=== PATIENT | female | born 1940 | race Caucasian/White ===

== ENCOUNTER 2016-05-20 15:28 | Emergency (ER) | payer OTHER ==
[~2016-05-20] VITALS: Ht 147.3 cm; Wt 58.5 kg
[~2016-05-20 15:28] MED LIST: A/B OTIC15 ML; ALENDRONATE SOD70 M1 PO; ALLOPURINOL PO; AMIODARONE HCL200 MG PO; ASA PO; BENICAR HCT1 TA1 PO; CLONIDINE HCL0.1 MG PO; DONEPEZIL HYDROC5 MG PO; FUROCOT20 MG PO; GLIMEPIRIDE1 M1 PO; HYDRALAZINE100 MG PO; HYDROCODONE BIT1 TA9 PO; KEFLEX500 MG PO; LANTUS100 U/ML SC; LEADER OMEPRAZO20 MG PO; LISINOPRIL40 MG PO; LOSARTAN POTAS100 MG PO; MASON25 MG PO; MEGL PO; METFORMIN HCL500 MG PO; METOPROLOL100 MG PO; NAP500 PO; NEU100 PO; POTASSIUM CHLO10 MEQ PO; PRADAXA150 M1 PO; SIMVASTATIN20 M1 PO; SIMVASTATIN20 MG PO; [UNRECOGNIZED DRUG - OTHER] PO
[2016-05-20 16:00] VITALS: BP 144/97
== END 2016-05-20 17:02 | disposition left against medical advice (07) ==
LOC: ED 15:28
DX: Z53.21 Procedure and treatment not carried out due to patient leaving prior to being seen by health care provider (principal)

== ENCOUNTER 2018-05-09 13:06 | Emergency (ER) | payer OTHER ==
[~2018-05-09] VITALS: Ht 127 cm; Wt 49.9 kg
[2018-05-09 13:13] VITALS: Ht 127 cm; Wt 49.9 kg
[2018-05-09 14:15] LABS: BASOPHIL % 0.4 % (0-2); PLATELET COUNT 198 x10^3mcL (130-400); RED CELL DISTRIBUTION WIDTH 12.6 % (11.5-14.5)
[2018-05-09 14:25] LABS: CALCIUM 9.1 mg/dL (8.5-10.1); CARBON DIOXIDE 28.4 mmol/L (21-32); CHLORIDE SERUM 104 mmol/L (98-107); CREATININE SERUM 0.8 mg/dL (0.6-1.0); GLUCOSE SERUM 123 mg/dL (74-106); SODIUM SERUM 140 mmol/L (136-145)
[2018-05-09 14:34] LABS: ALKALINE PHOSPHATASE 114 U/L (46-116); ALT/SGPT 25 U/L (14-59); AMYLASE 72 U/L (25-115); AST/SGOT 15 U/L (15-37); BILIRUBIN TOTAL 0.6 mg/dL (0.20-1.00); LIPASE 84 IU/L (73-393); T4(THYROXINE) 9.8 ug/dL (4.7-13.3); TOTAL PROTEIN, SERUM 7.5 g/dL (6.4-8.2)
[2018-05-09 14:35] LABS: ALBUMIN 3.2 g/dL (3.4-5.0); CHOLESTEROL 91 mg/dL (<200); HDL CHOLESTEROL 28 mg/dL (40-60)
[2018-05-09 15:23] LABS: UA SPECIFIC GRAVITY 1.015 (1.005-1.035); microscopic required? YES; urine erythrocyte 3+ (NEGATIVE)
[2018-05-09 16:02] VITALS: BP 135/80
== END 2018-05-09 16:02 | disposition home or self-care (01) ==
LOC: ED 13:06
PROVIDERS: Emergency Medicine
DX: N93.8 Other specified abnormal uterine and vaginal bleeding (principal); I11.0 Hypertensive heart disease with heart failure; I50.9 Heart failure, unspecified; E03.9 Hypothyroidism, unspecified; J44.9 Chronic obstructive pulmonary disease, unspecified; E11.9 Type 2 diabetes mellitus without complications; G30.9 Alzheimer's disease, unspecified; Z98.890 Other specified postprocedural states
CPT/HCPCS: 83880; J7030; Q0092

== ENCOUNTER 2018-05-13 00:56 | Inpatient (IN) | payer OTHER ==
[~2018-05-13] VITALS: Ht 157.5 cm; Wt 55.4 kg
[~2018-05-13 00:56] MED LIST changes: +METOPROLOL TAR100 MG PO; -METOPROLOL100 MG PO
[2018-05-13 01:38] LABS: BASOPHIL % 0.5 % (0-2); PLATELET COUNT 218 x10^3mcL (130-400); RED CELL DISTRIBUTION WIDTH 11.9 % (11.5-14.5)
[2018-05-13 01:47] LABS: CARBON DIOXIDE 27.6 mmol/L (21-32); CHLORIDE SERUM 106 mmol/L (98-107); CREATININE SERUM 0.8 mg/dL (0.6-1.0); GLUCOSE SERUM 132 mg/dL (74-106); POTASSIUM SERUM 3.4 mmol/L (3.5-5.1); SODIUM SERUM 142 mmol/L (136-145)
[2018-05-13 01:52] LABS: ALKALINE PHOSPHATASE 113 U/L (46-116); ALT/SGPT 17 U/L (14-59); AST/SGOT 15 U/L (15-37); BILIRUBIN TOTAL 0.49 mg/dL (0.20-1.00); TOTAL PROTEIN, SERUM 7.3 g/dL (6.4-8.2)
[2018-05-13 01:55] LABS: ALBUMIN 3.1 g/dL (3.4-5.0)
[2018-05-13 02:19] LABS: UA SPECIFIC GRAVITY <=1.005 (1.005-1.035); microscopic required? YES; urine erythrocyte 1+ (NEGATIVE)
[2018-05-13 02:43] LABS: CHOLESTEROL/HDL RATIO 3.1
[2018-05-13 03:27] VITALS: BP 105/51
[2018-05-13 06:14] LABS: BASOPHIL % 0.3 % (0-2); PLATELET COUNT 176 x10^3mcL (130-400); RED CELL DISTRIBUTION WIDTH 12.6 % (11.5-14.5)
[2018-05-13 06:32] LABS: CALCIUM 8.4 mg/dL (8.5-10.1); CARBON DIOXIDE 27.9 mmol/L (21-32); CHLORIDE SERUM 107 mmol/L (98-107); CREATININE SERUM 0.8 mg/dL (0.6-1.0); GLUCOSE SERUM 139 mg/dL (74-106); MAGNESIUM 1.9 mg/dL (1.8-2.4); PHOSPHOROUS 3.5 mg/dL (2.5-4.9); POTASSIUM SERUM 3.6 mmol/L (3.5-5.1); SODIUM SERUM 140 mmol/L (136-145)
[2018-05-13 09:21] VITALS: BP 105/55
[2018-05-13 13:01] VITALS: BP 117/57
[2018-05-13 15:45] LABS: microscopic required? YES; urine erythrocyte 2+ (NEGATIVE)
[2018-05-13 15:54] LABS: AMPHETAMINE QUAL UR NONE DETECTED (See below)
[2018-05-13 20:54] VITALS: BP 116/81
[2018-05-14 06:06] VITALS: BP 124/56
[2018-05-14 06:18] LABS: BASOPHIL % 0.5 % (0-2); PLATELET COUNT 167 x10^3mcL (130-400); RED CELL DISTRIBUTION WIDTH 12.6 % (11.5-14.5)
[2018-05-14 06:40] LABS: CALCIUM 8.7 mg/dL (8.5-10.1); CARBON DIOXIDE 29.8 mmol/L (21-32); CHLORIDE SERUM 108 mmol/L (98-107); CREATININE SERUM 0.6 mg/dL (0.6-1.0); GLUCOSE SERUM 121 mg/dL (74-106); MAGNESIUM 1.8 mg/dL (1.8-2.4); PHOSPHOROUS 3.2 mg/dL (2.5-4.9); SODIUM SERUM 147 mmol/L (136-145)
[2018-05-14 08:24] VITALS: BP 113/63
[2018-05-14 13:40] VITALS: BP 128/66
[2018-05-14 21:41] VITALS: BP 153/73
[2018-05-15 05:21] VITALS: BP 141/72
[2018-05-15 08:27] VITALS: BP 141/72
[2018-05-15 12:04] VITALS: BP 157/71
[2018-05-15] MEDS ORDERED: ROC1I IV (15:31)
[2018-05-15 16:15] VITALS: BP 140/70
[2018-05-15 16:17] VITALS: BP 140/70
== END 2018-05-15 18:30 | disposition home health service (06) | DRG 56 ==
LOC: ED 00:56 → DU 02:22
PROVIDERS: Emergency Medicine; General Practice; ADMIT Internal Medicine
DX: G30.9 Alzheimer's disease, unspecified (principal); G93.41 Metabolic encephalopathy; N17.0 Acute kidney failure with tubular necrosis; N39.0 Urinary tract infection, site not specified; E44.0 Moderate protein-calorie malnutrition; F02.80 Dementia in other diseases classified elsewhere, unspecified severity, without behavioral disturbance, psychotic disturbance, mood disturbance, and anxiety; E11.65 Type 2 diabetes mellitus with hyperglycemia; I48.0 Paroxysmal atrial fibrillation; B96.4 Proteus (mirabilis) (morganii) as the cause of diseases classified elsewhere; E87.6 Hypokalemia; Z79.84 Long term (current) use of oral hypoglycemic drugs
CPT/HCPCS: 82962; 83880; J0696; J1815; J2543; J3480; J7030; Q0092

== ENCOUNTER 2018-08-04 11:03 | Inpatient (IN) | payer OTHER ==
[~2018-08-04] VITALS: Ht 152.4 cm; Wt 63.0 kg
[~2018-08-04 11:03] MED LIST changes: +ROC1I IV
[2018-08-04 12:15] LABS: BASOPHIL % 0.4 % (0-2); PLATELET COUNT 181 x10^3mcL (130-400); RED CELL DISTRIBUTION WIDTH 12.7 % (11.5-14.5)
[2018-08-04 12:41] LABS: CARBON DIOXIDE 21.4 mmol/L (21-32); CHLORIDE SERUM 106 mmol/L (98-107); POTASSIUM SERUM 3.4 mmol/L (3.5-5.1); SODIUM SERUM 140 mmol/L (136-145)
[2018-08-04 13:03] LABS: ALKALINE PHOSPHATASE 103 U/L (46-116); ALT/SGPT 38 U/L (14-59); AST/SGOT 25 U/L (15-37); BILIRUBIN TOTAL 0.73 mg/dL (0.20-1.00); GLUCOSE SERUM 219 mg/dL (74-106); TOTAL PROTEIN, SERUM 7.7 g/dL (6.4-8.2)
[2018-08-04 13:24] LABS: ALBUMIN 2.8 g/dL (3.4-5.0); CALCIUM 9.2 mg/dL (8.5-10.1); CREATININE SERUM 0.8 mg/dL (0.6-1.0)
[2018-08-04 14:30] LABS: microscopic required? YES; urine erythrocyte 1+ (NEGATIVE)
[2018-08-04] MEDS ORDERED: SUPER B COMPLE150 MG PO (16:35)
[2018-08-04] MEDS ORDERED: NOR10 PO ×2 (16:36→16:38)
[2018-08-04] MEDS ORDERED: CIPRO500 MG PO (16:36)
[2018-08-04] MEDS ORDERED: NITROFURANTOIN100 MG PO (16:36)
[2018-08-04] MEDS ORDERED: AMOXICILLIN/CLA1 TA6 PO (16:36)
[2018-08-04] MEDS ORDERED: LANTUS SOLOS100 U/M1 SQ (16:37)
[2018-08-04] MEDS ORDERED: HALOPERIDOL2 MG PO (16:37)
[2018-08-04] MEDS ORDERED: TIROSINT50 MC1 PO (16:37)
[2018-08-04] MEDS ORDERED: LIPI20 PO (16:38)
[2018-08-04 16:39] LABS: MAGNESIUM 2.2 mg/dL (1.8-2.4)
[2018-08-04 17:14] VITALS: BP 147/67
[2018-08-04 19:21] VITALS: Ht 152.4 cm; Wt 63.0 kg
[2018-08-04 21:10] VITALS: BP 136/65
[2018-08-05 05:28] VITALS: BP 127/58
[2018-08-05 06:18] LABS: BASOPHIL % 0.3 % (0-2); PLATELET COUNT 176 x10^3mcL (130-400); RED CELL DISTRIBUTION WIDTH 12.6 % (11.5-14.5)
[2018-08-05 07:32] LABS: SODIUM SERUM 144 mmol/L (136-145)
[2018-08-05 07:33] LABS: CALCIUM 8.2 mg/dL (8.5-10.1); CARBON DIOXIDE 25.7 mmol/L (21-32); CHLORIDE SERUM 110 mmol/L (98-107); CREATININE SERUM 0.6 mg/dL (0.6-1.0); GLUCOSE SERUM 80 mg/dL (74-106); POTASSIUM SERUM 2.6 mmol/L (3.5-5.1)
[2018-08-05 08:36] VITALS: BP 143/73
[2018-08-05] MEDS ORDERED: BACTROBAN21 (11:02)
[2018-08-05] MEDS ORDERED: HIBICLENS118 ML TOP (11:02)
[2018-08-05 12:08] VITALS: BP 143/73
== END 2018-08-05 13:46 | disposition home or self-care (01) | DRG 56 ==
LOC: ED 11:03 → MU 16:19 → DU 16:19 → MU 17:01 → DU 17:20
PROVIDERS: Emergency Medicine; ADMIT Internal Medicine
DX: G30.9 Alzheimer's disease, unspecified (principal); N17.0 Acute kidney failure with tubular necrosis; G93.41 Metabolic encephalopathy; E43 Unspecified severe protein-calorie malnutrition; E87.2 Acidosis; E86.0 Dehydration; E11.9 Type 2 diabetes mellitus without complications; F02.80 Dementia in other diseases classified elsewhere, unspecified severity, without behavioral disturbance, psychotic disturbance, mood disturbance, and anxiety; M10.9 Gout, unspecified; I10 Essential (primary) hypertension; I25.2 Old myocardial infarction; Z79.4 Long term (current) use of insulin; Z68.25 Body mass index [BMI] 25.0-25.9, adult; Z87.440 Personal history of urinary (tract) infections; Z79.84 Long term (current) use of oral hypoglycemic drugs
CPT/HCPCS: 82962; J1815; J3480; J7030